=== PATIENT | male | born 1965 | race Caucasian/White ===

== ENCOUNTER 2018-07-16 11:06 | Emergency (ER) ==
[2018-07-16 11:15] VITALS: BP 136/76; TEMP 97.7; BMI 24.4
--- NOTE | 2018-07-16 11:40 | ED.PDOC ---
General ED Provider: Dr. AMEENA KLEIN Chief Complaint: Chest Pain Stated Complaint: Chest Pain. Onset while in [employer] this AM while in [facility].Denies radiation into neck, jaw or shoulder; Feels discomfort wrap around chest into back. Increased with deep breath and cough. Denies dyspnea, diaphoresis, nausea or vomiting. Feels lightheaded. Has had similar pain in past , but did not seek medical attn. Time Seen by Physician: 11:20 Mode of Arrival: Walk-In Information Source: Patient Exam Limitations: No limitations Nursing and Triage Documentation Reviewed and Agree: Yes Does patient meet sepsis criteria?: No System Inflammatory Response Syndrome: Not Applicable Sepsis Protocol: For patient's 13 years and over: Temp is 96.8 and below OR 101 and greater Pulse >90 BPM Resp >20/minute Acutely Altered Mental Status Are patient's symptoms suggestive of a new infection, such as: -Pneumonia -Skin, Soft Tissue -Endocarditis -UTI -Bone, Joint Infection -Implantable Device -Acute Abdominal Infection -Wound Infection -Meningitis -Blood Stream Catheter Infection -Unknown Cardiovascular Complaint Exam - Chest Pain Complaint/Exam Onset: Sudden Duration: 30 min Symptoms Are: Still present (but lessened) Initial Severity: Moderate Current Severity: Mild Location: Reports: Upper sternal, Left anterior Pain Radiates: Reports: Back Character: Reports: Aching, Heaviness Aggravating: Reports: None Alleviating: Reports: None Associated Signs and Symptoms: Denies: Diaphoresis, Nausea, Vomiting, Fever, Palpitations, Cough, Hemoptysis, Back pain, Abdominal pain, Dizziness, Short of air, Calf pain, Calf swelling Related History: Reports: Similar episode Related Surgical History: Reports: None History of Healthcare-Acquired Pneumonia: Reports: No AMI/ACS Risk Factors: Reports: None TAD Risk Factors: Reports: None Pulmonary Embolism Risk Factors: Reports: None Prior Care for this Complaint: No Recent Stress Test: No Recent Echo/LV Function: No JVD Present: No Subcutaneous Emphysema Present: No Diminshed Breath Sounds: No Reproducible Chest Wall Pain: No Bilateral Pulses Present: Yes Unequal Pulses Noted: No If Risk Factors for AMI/ACS Consider: EKG, Cardiac Enzymes, Oxygen, Aspirin Differential Diagnoses: ACS, Unstable Angina, Aortic Aneurysm, Chest Wall Pain, Pulmonary Embolism Review of Systems - Review Of Systems Constitutional: Reports: No symptoms Eyes: Reports: No symptoms Ears, Nose, Mouth, Throat: Reports: No symptoms Respiratory: Reports: No symptoms Cardiac: Reports: No symptoms GI: Reports: No symptoms : Reports: No symptoms Musculoskeletal: Reports: No symptoms Skin: Reports: No symptoms Neurological: Reports: No symptoms Endocrine: Reports: No symptoms Hematologic/Lymphatic: Reports: No symptoms All Other Systems: Reviewed and Negative Past Medical History - Past Medical History Previously Healthy: Yes Endocrine: Reports: None Cardiovascular: Reports: None Respiratory: Reports: None Hematological: Reports: None Gastrointestinal: Reports: GERD Genitourinary: Reports: Kidney stones Neuro/Psych: Reports: None Musculoskeletal: Reports: None Cancer: Reports: None - Surgical History General Surgical History: Reports: Unknown - Family History Family History: Reports: Unknown - Social History Smoking Status: Never smoker Hx Substance Use: No Alcohol Screening: None Physical Exam - Physical Exam Appearance: Well-appearing, No pain distress, Well-nourished Eyes: STAR, EOMI, Conjunctiva clear ENT: Ears normal, Nose normal, Oropharynx normal Respiratory: Airway patent, Breath sounds clear, Breath sounds equal, Respirations nonlabored Cardiovascular: RRR, Pulses normal, No rub, No murmur GI/: Soft, Nontender, No masses, Bowel sounds normal, No Organomegaly Musculoskeletal: Normal strength, ROM intact, No edema, No calf tenderness Skin: Warm, Dry, Normal color Neurological: Sensation intact, Motor intact, Reflexes intact, Cranial nerves intact, Alert, Oriented Psychiatric: Affect appropriate, Mood appropriate Re-Evaluation - Re-Evaluation Time of Re-Evaluation: 14:00 Status: Improved Vital Signs Stable: Yes Appearance: NAD Lungs: Clear Skin: Warm and Dry Neuro: Alert and Oriented X3 CV: RRR Critical Care Note - Critical Care Note Total Time (mins): 60 Course - Course Hematology/Chemistry: 07/16/18 11:55 07/16/18 11:55 Orders, Labs, Meds: Lab Review 07/16/18 07/16/18 07/16/18 11:55 11:55 11:55 WBC 6.93 RBC 4.63 L Hgb 14.1 Hct 41.5 L MCV 89.6 MCH 30.5 MCHC 34.0 RDW Coeff of Sergio 13.0 Plt Count 247 Immature Gran % (Auto) 0.3 Neut % (Auto) 49.0 Lymph % (Auto) 39.8 [place] % (Auto) 7.9 Eos % (Auto) 2.6 Baso % (Auto) 0.4 Immature Gran # (Auto) 0.0 Neut # (Auto) 3.4 Lymph # (Auto) 2.8 [place] # (Auto) 0.6 Eos # (Auto) 0.2 Baso # (Auto) 0.0 ESR 6 D-Dimer (Manual) 340.29 Sodium 136.0 L Potassium 3.95 Chloride 102.4 Carbon Dioxide 28.8 Anion Gap 8.75 BUN 16.9 Creatinine 0.74 Estimated GFR (MDRD) 110.00 BUN/Creatinine Ratio 22.83 Glucose 101.0 Calcium 8.78 Total Bilirubin 0.57 AST 20.8 ALT 15.6 Alkaline Phosphatase 84.3 Total Creatine Kinase 90.5 Troponin I < 0.012 Total Protein 7.43 Albumin 4.20 Globulin 3.23 Albumin/Globulin Ratio 1.30 Orders Category Date Time Status EKG-(ED ONLY) Stat CARDIO 07/16/18 12:15 Completed OXYGEN Routine CARDIO 07/16/18 11:54 Ordered ACTIVITY .Complete BR CARE 07/16/18 11:53 Active VITAL SIGNS Q8HR CARE 07/16/18 11:53 Active CBC W/ AUTO DIFF Stat LAB 07/16/18 11:55 Completed CMP [COMPREHENSIVE METABOLIC PANEL] Stat LAB 07/16/18 11:55 Completed CPK [CREATINE KINASE] Stat LAB 07/16/18 11:55 Completed D-DIMER Stat LAB 07/16/18 11:55 Completed ESR Stat LAB 07/16/18 11:55 Completed TROPONIN I Stat LAB 07/16/18 11:55 Completed CHEST, 1V AP ONLY Stat RADS 07/16/18 11:53 Completed Vital Signs: Temp Pulse Resp BP Pulse Ox 07/16/18 11:07 97.7 F 79 18 136/76 100 ERWIN Risk Score ERWIN Risk Score: Risk Score Odds of by 30D 0 0.1 (0.1-0.2) 1 0.3 (0.2-0.3) 2 0.4 (0.3-0.5) 3 0.7 (0.6-0.9) 4 1.2 (1.0-1.5) 5 2.2 (1.9-2.6) 6 3.0 (2.5-3.6) 7 4.8 (3.8-6.1) Departure - Departure Time of Disposition: 14:15 Disposition: HOME SELF-CARE Discharge Problem: Atypical chest pain Instructions: Chest Pain (ED) Condition: Good Pt referred to PMD for follow-up: Yes (1 week) IPMP verified?: No Additional Instructions: See PCP in next wk for outpatient evaluation. Return if develops further chest discomfort Allergies/Adverse Reactions: Allergies codeine Adverse Reaction (Verified 07/16/18 11:15) Vomiting Home Medications: Ambulatory Orders Cholecalciferol (Vitamin D3) [Vitamin D] 5,000 unit PO DAILY 12/17/14 Ranitidine HCl 300 mg PO BID 12/17/14 Tramadol HCl [Ultram] 50 mg PO TID PRN 07/16/18 Disposition Discussed With: Patient
--- NOTE | 2018-07-16 13:38 | DI ---
EXAMINATION: AP chest radiograph. HISTORY: Chest pain COMPARISON: 11/28/2011 FINDINGS: No focal consolidation, pleural effusion or pneumothorax is identified. The cardiomediastinal silhouette is within normal limits. IMPRESSION: No acute cardiopulmonary findings.
== END 2018-07-16 14:58 | disposition home or self-care (01) ==
LOC: ED 11:06
DX: R07.9 Chest pain, unspecified (principal); R42 Dizziness and giddiness
CPT/HCPCS: 36415; 80053; 82550; 84484; 85025; 85379; 85651; 93005; 93010; 99283